=== PATIENT | female | born 1965 ===

== ENCOUNTER 2020-08-28 18:32 | Emergency (ER) | payer OTHER ==
[2020-08-28 18:44] VITALS: BP 116/68
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
--- NOTE | 2020-08-30 19:14 | Electrocardiograph Report ---
[facility] Test Date: 2020-08-28 Test Time: 18:49:27 Pat Name: TUAN ORTIZ Department: Room: Gender: F Therapy Assistant: DILAN : 1965 Requested By: LUTHER MEDINA Order Number: [id number] Reading MD: Sera Olguin Measurements Intervals [place] Rate: 71 P: 49 [place]: 144 QRS: 43 QRSD: 83 T: 57 QT: 414 QTc: 451 Interpretive Statements Sinus rhythm No previous ECG available for comparison Electronically Signed On 08-30-2020 19:14:43 EDT by Sera Olguin
== END 2020-08-28 22:22 | disposition home or self-care (01) ==
LOC: ED 18:32
DX: R07.2 Precordial pain (principal); Z98.890 Other specified postprocedural states; V87.7XXA Person injured in collision between other specified motor vehicles (traffic), initial encounter; Y93.89 Activity, other specified; Y92.488 Other paved roadways as the place of occurrence of the external cause; Y99.8 Other external cause status
CPT/HCPCS: 71046; 93005; 99283